=== PATIENT | male | born 1970 | race American Indian/Alaskan Native ===

== ENCOUNTER 2016-06-05 09:19 | Inpatient (IN) | payer OTHER ==
[2016-06-05 09:23] VITALS: BMI 24.4
--- NOTE | 2016-06-05 10:06 | ED PDOC ---
Arrival/HPI - General Chief Complaint: Psychiatric Evaluation Time Seen by Provider: 06/05/16 09:37 Historian: Patient - History of Present Illness Narrative History of Present Illness (Text): 06/05/16 10:06 46-year-old male with a history of schizophrenia noncompliant with his medications presents today hearing voices. Patient denies suicidal or homicidal ideation but states the voices are telling him to break Mirrors and do different things that he doesn't want to do. Patient denies chest pain or shortness of breath. No abdominal pain. No nausea or vomiting. Patient states she's been noncompliant with his medications since February 2015. Past Medical History - Provider Review Nursing Documentation Reviewed: Yes - Travel History Have you recently traveled outside [place] w/in the past 3 mons?: No - Past History Past History: Non-Contributing - Infectious Disease Hx of Infectious Diseases: None - Tetanus Immunization Tetanus Immunization: Unknown - Past Medical History Past Medical History: No Previous - Cardiac Hx Cardiac Disorders: No Hx [place]: No - Pulmonary Hx Respiratory Disorders: No Hx Chronic Obstructive Pulmonary Disease (COPD): No Hx Emphysema: No - Neurological Hx Neurological Disorder: No HX Cerebrovascular Accident: No Hx Seizures: No - HEENT Hx HEENT Disorder: No - Renal Hx Renal Disorder: No - Endocrine/Metabolic Hx Endocrine Disorders: No - Hematological/Oncological Hx Blood Disorders: No Hx Cancer: No - Integumentary Hx Dermatological Disorder: No - Musculoskeletal/Rheumatological Hx Musculoskeletal Disorders: No Hx Arthritis: No Hx Falls: No - Gastrointestinal Hx Gastrointestinal Disorders: No - Genitourinary/Gynecological Hx Genitourinary Disorders: No Hx Sexually Transmitted Diseases: No - Psychiatric Hx Psychophysiologic Disorder: No Hx Anxiety: No Hx Bipolar Disorder: No Hx Depression: No Hx Emotional Abuse: No Hx Hallucinations: No Hx Panic Disorder: No Hx Post Traumatic Stress Disorder: No Hx Psychosis: No Hx Physical Abuse: No Hx Schizophrenia: No Hx Sexual Abuse: No Hx Substance Use: No - Past Surgical History Past Surgical History: No Previous - Anesthesia Hx Anesthesia: No Hx Anesthesia Reactions: No Hx Malignant Hyperthermia: No - Suicidal Assessment Feels Threatened In Home Enviroment: No Family/Social History - Physician Review Nursing Documentation Reviewed: Yes Family/Social History: Unknown Family HX Smoking Status: Heavy Smoker > 10 Cigarettes Daily Hx Alcohol Use: No Hx Substance Use: No Hx Substance Use Treatment: Yes Allergies/Home Meds Allergies/Adverse Reactions: Allergies No Known Allergies Allergy (Verified 06/05/16 09:23) Home Medications: Home Meds Medication Instructions Recorded Confirmed No Known Home Med 06/05/16 06/05/16 Review of Systems - Review of Systems Constitutional: absent: Fatigue, Fevers Respiratory: absent: SOB, Cough Cardiovascular: absent: Chest Pain, Palpitations Gastrointestinal: absent: Abdominal Pain, Nausea, Vomiting Musculoskeletal: absent: Arthralgias Skin: absent: Rash Neurological: absent: Headache, Dizziness Psychiatric: Other (hearing voices). absent: Anxiety, Depression Physical Exam Vital Signs Reviewed: Yes Vital Signs Temp Pulse Resp BP Pulse Ox 06/05/16 09:23 98 F 71 16 150/74 100 Temperature: Afebrile Blood Pressure: Normal Pulse: Regular Respiratory Rate: Normal Appearance: Positive for: Well-Appearing, Non-Toxic, Comfortable Pain Distress: None Mental Status: Positive for: Alert and Oriented X 3 - Systems Exam Head: Present: Atraumatic Mouth: Present: Moist Mucous Membranes Neck: Present: Normal Range of Motion Respiratory/Chest: Present: Clear to Auscultation, Good Air Exchange. No: Respiratory Distress, Accessory Muscle Use Cardiovascular: Present: Regular Rate and Rhythm, Normal S1, S2. No: Murmurs Abdomen: No: Tenderness Skin: Present: Warm, Dry, Normal Color. No: Rashes Psychiatric: Present: Alert, Oriented x 3 Medical Decision Making ED Course and Treatment: 06/05/16 10:08 Patient is nontoxic well-appearing in no distress vital signs are stable. CBC WNL CMP WNL Tylenol WNL Salicylate WNL Alcohol level WNL Urine drug screen + marijuana, + cocaine UA; + blood, + small leukocytes. cxr: wnl ekg: Sinus bradycardia with sinus arrhythmia at 53 bpm normal axis normal intervals no ST elevations pt is medically cleared for PES evaluation Patient was seen and evaluated by PES screener: dru pt signed voluntarily to behavioral health floor. dr. hairston accepts. Impression; psychosis NOS Admit to behavioral health floor - Lab Interpretations Lab Results: 06/05/16 09:00 06/05/16 09:00 Lab Results 06/05/16 10:21: Urine Color Yellow, Urine Appearance Clear, Urine pH 6.0, Ur Specific [place] 1.025, Urine Protein Negative, Urine Glucose (UA) Negative, Urine Ketones Negative, Urine Blood Trace-intact H, Urine Nitrate Negative, Urine Bilirubin Negative, Urine Urobilinogen 0.2, Ur Leukocyte Esterase Small H , Urine RBC 0 - 2, Urine WBC 1 - 3, Ur Epithelial Cells 0 - 2, Urine Opiates Screen Negative, Urine Methadone Screen Negative, Ur Barbiturates Screen Negative, Ur Phencyclidine Scrn Negative, Ur Amphetamines Screen Negative, U Benzodiazepines Scrn Negative, U Oth Cocaine Metabols Positive H, U Cannabinoids Screen Positive H 06/05/16 09:00: WBC 5.5, RBC 4.39, Hgb 14.0, Hct 40.7 L, MCV 92.7, MCH 31.9, MCHC 34.4, RDW 11.3 L, Plt Count 233, MPV 9.6, Gran % 63.8, Lymph % (Auto) 24.0 , Ross % (Auto) 9.9 H, Eos % (Auto) 1.8, Baso % (Auto) 0.5, Gran # 3.53, Lymph # 1.3, Ross # 0.6, Eos # 0.1, Baso # 0.03, Sodium 137, Potassium 3.9, Chloride 100, Carbon Dioxide 29, Anion Gap 12, BUN 15, Creatinine 1.0, Est GFR ( Amer) > 60, Est GFR (Non-Af Amer) > 60, Random Glucose 96, Calcium 8.8, Total Bilirubin 0.8, AST 27, ALT 21, Alkaline Phosphatase 70, Total Protein 7.5, Albumin 4.1, Globulin 3.4, Albumin/Globulin Ratio 1.2, Salicylates < 1 L, Acetaminophen < 10.0 L, Alcohol, Quantitative < 10 - RAD Interpretation Radiology Orders: 06/05/16 09:37 CHEST PORTABLE [RAD] Stat Disposition/Present on Arrival - Present on Arrival Any Indicators Present on Arrival: No History of DVT/PE: No History of Uncontrolled Diabetes: No Urinary Catheter: No History of Decub. Ulcer: No History Surgical Site Infection Following: None - Disposition Have Diagnosis and Disposition been Completed?: Yes Diagnosis: Psychosis Disposition: HOSPITALIZED Disposition Time: 12:41 Patient Plan: Admission Condition: FAIR
[2016-06-05 10:09] LABS: ADD MANUAL DIFF? NO
[2016-06-05 10:14] LABS: BASO # 0.03 K/mm3 (0.0-2.0); BASO % 0.5 % (0.0-3.0); EOS # 0.1 (0.0-0.7); EOS % 1.8 % (1.5-5.0); GRAN # 3.53 (1.4-6.5); GRAN % 63.8 % (50.0-68.0); HEMATOCRIT 40.7 % (42.0-52.0); LYMPH # 1.3 (1.2-3.4); MEAN CELL VOLUME 92.7 fL (80.0-105.0); MEAN CORPUSCULAR HEMOGLOBIN 31.9 pg (25.0-35.0); MEAN CORPUSCULAR HGB CONC 34.4 g/dl (31.0-37.0); MEAN PLATELET VOLUME 9.6 fl (7.0-11.0); MONO # 0.6 (0.1-0.6); MONO % 9.9 % (1.0-6.0); PLATELET COUNT 233 10^3/uL (120.0-450.0); RED CELL DISTRIBUTION WIDTH 11.3 % (11.5-14.5); WHITE BLOOD COUNT 5.5 10^3/ul (4.5-11.0)
[2016-06-05 10:22] LABS: ALB/GLOB RATIO 1.2 (1.1-1.8); ALKALINE PHOSPHATASE 70 U/L (38-133); ALT/SGPT 21 U/L (7-56); AST/SGOT 27 U/L (15-59); BILIRUBIN,TOTAL 0.8 mg/dL (0.2-1.3); BLOOD UREA NITROGEN 15 mg/dL (7-21); CALCIUM 8.8 mg/dL (8.4-10.5); CARBON DIOXIDE 29 mmol/L (21-33); CHLORIDE 100 mmol/L (98-107); GFR AFRICAN-AMERICAN > 60; GLUCOSE,RANDOM 96 mg/dL (70-110); POTASSIUM 3.9 mmol/L (3.6-5.0); SODIUM 137 mmol/L (132-148); TOTAL PROTEIN 7.5 g/dL (5.8-8.3)
[2016-06-05 11:00] LABS: URINE BILIRUBIN NEGATIVE (NEGATIVE); URINE BLOOD TRACE-INTACT (NEGATIVE); URINE GLUCOSE (UA) NEGATIVE (NEGATIVE); URINE KETONE NEGATIVE (NEGATIVE); URINE LEUKOCYTE ESTERASE SMALL Leu/uL (NEGATIVE); URINE PROTEIN NEGATIVE mg/dL (<30 mg/dL); URINE UROBILINOGEN 0.2 E.U./dL (<1 E.U./dL)
[2016-06-05 11:10] LABS: URINE APPEARANCE CLEAR (CLEAR); URINE COLOR YELLOW (YELLOW)
[2016-06-05 11:13] LABS: URINE EPITHELIAL CELLS 0 - 2 /hpf (0-5); URINE RBC 0 - 2 /hpf (0-2)
--- NOTE | 2016-06-05 11:40 | RAD ---
HISTORY: pes eval COMPARISON: Comparison chest dated 04/14/2016 FINDINGS: LUNGS: No active pulmonary disease. PLEURA: No significant pleural effusion identified, no pneumothorax apparent. CARDIOVASCULAR: Normal. OSSEOUS STRUCTURES: No significant abnormalities. VISUALIZED UPPER ABDOMEN: Normal. OTHER FINDINGS: None. IMPRESSION: No active disease.
[2016-06-05 12:17] VITALS: O2SAT 99
--- NOTE | 2016-06-05 19:57 | CARD ---
APPROVED REPORT EKG Measurement Heart [id number] <Conclusion> Sinus bradycardia with sinus arrhythmia Moderate voltage criteria for LVH, may be normal variant Borderline ECG
[2016-06-06 08:52] LABS: CHOLESTEROL 153 mg/dL (130-200)
[2016-06-06 09:20] LABS: THYROID STIMULATING HORMONE 2.18 mIU/mL (0.46-4.68)
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
--- NOTE | 2016-06-06 15:06 | PCM.PSYCH ---
Initial Psychiatric Evaluation - Initial Psychiatric Evaluation Type of Admission: Voluntary Legal Status: Capacity (atient has capacity to sign consent for treatment) Chief Complaint (in patient's own words): "I was hearing voices, it is scary, I don't want to have any consequences, I do want to hurt myself, I don't want to hurt others, I'm very peaceful person" Patient's Reaction to Hospitalization: patient was admitted to the psychiatric inpatient for evaluation and stabilization of psychotic symptoms, patient was hearing voices, command type, had tendency of following on voices, patient was not able to function, lost his job, needs further evaluation and stabilization, medication titration. History of Present Illness and Precipitating Events: shortly pt is 46 years old -Martiniquais male, history of one psychiatric admission in [facility] in [address] Rose's service, self reported h/o suicidal attempt 2013, h/o cannabis and cocaine abuse, currently unemployed, homeless, brought himself to the ED looking for admission because of worsening of psychosis, command type hallucinations, telling him to brake window or hurt people, pt did not want to act on it and brought himself to the hospital. patient was seen and examined today at the morning time at treatment team room, with medical students, patient presented to have good personal hygiene,with ADLs. 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 Pt said shortly after that voices were becoming worse and from mumbling it became more formal, pt said it is only one voice and he cannot exclude that it it his own voice. Patient said she didn't look for help initially because he thought that he could block it. Patient said all of the symptoms for getting worse and worse for the past 20 years.Patient said she had one previous admission to the psychiatric inpatient unit in this hospital in 2013. Patient said that he wanted to jump off the [facility] but [place] was closed , "if it would be opened, U probably could not talk to me right now", ack then patient ex- refer him to [place] on emergency room for admission. This conventional underwriter checked previous notes from Dr. Art mendoza it is nonspecific, and no suicidal attempt described. at present moment patient reported that he was feeling depressed, hopeless, at the same time patient reported that his voices are getting worse, from being whispers right now it is, and type for example to break the window were to hurt other people. Patient said that he doesn't have intent or plan to hurt other people or himself. Patient reported to have poor appetite and sleep. Patient denied using alcohol, reported "I love marijuana, I love that I mean it ", patient denied using cocaine on daily basis, last time was last Friday.Patient reported to smoke half a pack a day refused to be on nicotine patch. Counseling provided. Smoking Cessation Counseling: The patient was counseled as to the multiple risks to his/her health from continued use of tobacco products. It was explained that continuing to smoke may lead to multiple short and arterial embalmer negative health consequences, including but not limited to mouth/esophageal /lung cancer, COPD, and heart disease. He/she states he/she understands these risks, and also understands the options and resources available to him/her to help him/her stop smoking. Nicotine replacement therapy, local hotlines, and local resources were discussed as viable options for helping him/her stop his/her tobacco use. The total time spent counseling the patient regarding tobacco cessation was 3 minutes Past psych h/o: one admission, h/o PCP, MJ use, polysubstance abuse. medical h/o: denied social h/o: homeless, pt reported to work at the [employer]. 06/05/16 09:00 06/05/16 09:00 Lab Results 06/06/16 08:00: Triglycerides 106, Cholesterol 153, LDL Cholesterol Direct 84, HDL Cholesterol 49, Free T4 1.00, TSH 3rd Generation 2.18 06/05/16 10:21: Urine Color Yellow, Urine Appearance Clear, Urine pH 6.0, Ur Specific [place] 1.025, Urine Protein Negative, Urine Glucose (UA) Negative, Urine Ketones Negative, Urine Blood Trace-intact H, Urine Nitrate Negative, Urine Bilirubin Negative, Urine Urobilinogen 0.2, Ur Leukocyte Esterase Small H , Urine RBC 0 - 2, Urine WBC 1 - 3, Ur Epithelial Cells 0 - 2, Urine Opiates Screen Negative, Urine Methadone Screen Negative, Ur Barbiturates Screen Negative, Ur Phencyclidine Scrn Negative, Ur Amphetamines Screen Negative, U Benzodiazepines Scrn Negative, U Oth Cocaine Metabols Positive H, U Cannabinoids Screen Positive H 06/05/16 09:00: WBC 5.5, RBC 4.39, Hgb 14.0, Hct 40.7 L, MCV 92.7, MCH 31.9, MCHC 34.4, RDW 11.3 L, Plt Count 233, MPV 9.6, Gran % 63.8, Lymph % (Auto) 24.0 , [place] % (Auto) 9.9 H, Eos % (Auto) 1.8, Baso % (Auto) 0.5, Gran # 3.53, Lymph # 1.3, [place] # 0.6, Eos # 0.1, Baso # 0.03, Sodium 137, Potassium 3.9, Chloride 100, Carbon Dioxide 29, Anion Gap 12, BUN 15, Creatinine 1.0, Est GFR ( Amer) > 60, Est GFR (Non-Af Amer) > 60, Random Glucose 96, Calcium 8.8, Total Bilirubin 0.8, AST 27, ALT 21, Alkaline Phosphatase 70, Total Protein 7.5, Albumin 4.1, Globulin 3.4, Albumin/Globulin Ratio 1.2, Salicylates < 1 L, Acetaminophen < 10.0 L, Alcohol, Quantitative < 10 Vital Signs Temp Pulse Resp BP Pulse Ox 06/06/16 10:16 98.5 F 49 L 20 97/54 L 06/05/16 13:50 17 06/05/16 13:28 74 18 115/67 99 06/05/16 11:19 98.6 F 74 18 148/81 99 06/05/16 09:23 98 F 71 16 150/74 100 Current Medications: Active Medications Generic Name Dose Route Start Last Admin Trade Name Freq PRN Reason Stop Dose Admin Benztropine Mesylate 0.5 mg 06/05/16 16:00 06/06/16 09:58 Cogentin PO 0.5 mg BID MONA Administration Fluoxetine HCl 20 mg 06/06/16 11:15 06/06/16 11:32 Prozac PO 20 mg DAILY MONA Administration Lorazepam 1 mg 06/05/16 14:29 Ativan IM Q6H PRN Anxiety Protocol Lorazepam 1 mg 06/05/16 14:30 Ativan PO Q6H PRN Anxiety Protocol Nicotine 1 patch 06/06/16 12:45 Nicoderm Cq TD DAILY MONA Risperidone 1 mg 06/05/16 16:00 06/06/16 09:58 Risperdal Tab PO 1 mg BID MONA Administration Protocol Trazodone HCl 50 mg 06/05/16 22:00 06/05/16 22:29 Desyrel PO 50 mg HS MONA Administration Ziprasidone 20 mg 06/05/16 14:27 Geodon Cap PO Q6H PRN Agitation Protocol Ziprasidone 20 mg 06/05/16 14:28 Geodon Inj IM Q6H PRN Agitation Protocol Past Psychiatric History - Past Psychiatric History Previous Treatment History: Inpatient Prior Professional Help: See HPI Prior Psychiatric Treatment: she HPI At [facility] hospital: see HPI Duration: see HPI Nature of Treatment: see HPI Explanation of prior treatment: see HPI History of Abuse: denied History of ETOH/Drug Use: see HPI History of Family Illness: denied Pertinent Medical Hx (Current Medical&Sleep Prob, Allergies): Allergies Allergy/AdvReac Type Severity Reaction Status Date / Time No Known Allergies Allergy Verified 06/05/16 09:23 No Known Home Med 06/05/16 Review of Systems - Review of Systems Systems not reviewed;Unavailable: Acuity of Condition - EENT Eyes: As Per HPI Ears: As Per HPI Nose/Mouth/Throat: As Per HPI - Cardiovascular Cardiovascular: As Per HPI - Respiratory Respiratory: As Per HPI - Gastrointestinal Gastrointestinal: As Per HPI - Genitourinary Genitourinary: As Per HPI - Reproductive: Male Reproductive:Male: As Per HPI - Musculoskeletal Musculoskeletal: As Par HPI - Integumentary Integumentary: As Per HPI - Neurological Neurological: As Per HPI - Psychiatric Psychiatric: As Per HPI - Endocrine Endocrine: As Per HPI - Hematologic/Lymphatic Hematologic: As Per HPI Mental Status Examination - Personal Presentation Personal Presentation: Looks stated age - Affect Affect: Other (expanded) - Motor Activity Motor Activity: Calm - Reliability in Providing Information Reliability in Providing Information: Fair - Speech Speech: Other (circumstantial) - Mood Mood: Depressed, Anxious - Formal Thought Process Formal Thought Process: Hallucinations, Delusions - Hallucinations/Delusions Hallucinations: Auditory Delusions: Persecution - Obsessions/Compulsions Obsessions: None Compulsions: None - Cognitive Functions Orientation: Person, Place, Situation, Time Sensorium: Alert Attention/Concentration: Easily distracted Estimate of Intelligence: Average Judgement: Intact, as evidence by: Insight regarding need for hospitalization - Risk Risk: Self-mutilation, Diminished functioning - Strength & Assets Inventory Strength & Assets Inventory: Cooperative, Other (good physical health) - Limitations Limitations: Other (noncompliance with meds) DSM 5 DX - DSM 5 DSM 5 Diagnosis: r/o substance induced psychosis psychosis nos r/o bipolar cocaine abuse cannabis abuse - Recommended/Plan of Treatment Treatment Recommendations and Plan of Treatment: milieu/structure/supportive therapy will resume risperdal 1mg am and hs for psychosis and mood stabilization will start prozac 20mg po daily for depressive symptoms and mood stabilization will give trazodone 50mg hs for insomnia and depression will call medical consult SW evaluation will monitor closely Projected ELOS: 7days Prognosis: fair Discharge Plan and Discharge Criteria: Pt will be not depressed or manic, will be more hopeful, will be not psychotic or anxious, will be tolerating medications well, will not have major side effects, will be able to function, will not pose threat to self or others. - Smoking Cessation Smoking Cessation Initiated: Yes
--- NOTE | 2016-06-07 16:04 | PCM.PYCHPN ---
Psychiatric Progress Note - Psychiatric Progress Note Patient seen today, length of contact: 30 MINUTES Patient Chief Complaint: "I ffeel little better" Problems Identified/Issues Discussed: Suicide/ homicide prevention, past psychiatric h/o, current psychiatric symptoms , medical problems, risk/benefits and alternatives of medications, medications compliance, coping strategies, substance abuse h/o, relapse prevention, importance of follow up with psychiatrist and therapist, discharge plan. Medical Problems: denied h/o medical issues Diagnostic Results: 06/05/16 09:00 06/05/16 09:00 Lab Results 06/06/16 08:00: Triglycerides 106, Cholesterol 153, LDL Cholesterol Direct 84, HDL Cholesterol 49, Free T4 1.00, TSH 3rd Generation 2.18, RPR Nonreactive 06/05/16 10:21: Urine Color Yellow, Urine Appearance Clear, Urine pH 6.0, Ur Specific [place] 1.025, Urine Protein Negative, Urine Glucose (UA) Negative, Urine Ketones Negative, Urine Blood Trace-intact H, Urine Nitrate Negative, Urine Bilirubin Negative, Urine Urobilinogen 0.2, Ur Leukocyte Esterase Small H , Urine RBC 0 - 2, Urine WBC 1 - 3, Ur Epithelial Cells 0 - 2, Urine Opiates Screen Negative, Urine Methadone Screen Negative, Ur Barbiturates Screen Negative, Ur Phencyclidine Scrn Negative, Ur Amphetamines Screen Negative, U Benzodiazepines Scrn Negative, U Oth Cocaine Metabols Positive H, U Cannabinoids Screen Positive H 06/05/16 09:00: WBC 5.5, RBC 4.39, Hgb 14.0, Hct 40.7 L, MCV 92.7, MCH 31.9, MCHC 34.4, RDW 11.3 L, Plt Count 233, MPV 9.6, Gran % 63.8, Lymph % (Auto) 24.0 , [place] % (Auto) 9.9 H, Eos % (Auto) 1.8, Baso % (Auto) 0.5, Gran # 3.53, Lymph # 1.3, [place] # 0.6, Eos # 0.1, Baso # 0.03, Sodium 137, Potassium 3.9, Chloride 100, Carbon Dioxide 29, Anion Gap 12, BUN 15, Creatinine 1.0, Est GFR ( Amer) > 60, Est GFR (Non-Af Amer) > 60, Random Glucose 96, Calcium 8.8, Total Bilirubin 0.8, AST 27, ALT 21, Alkaline Phosphatase 70, Total Protein 7.5, Albumin 4.1, Globulin 3.4, Albumin/Globulin Ratio 1.2, Salicylates < 1 L, Acetaminophen < 10.0 L, Alcohol, Quantitative < 10 Vital Signs Temp Pulse Resp BP Pulse Ox 06/07/16 06:00 98.0 F 57 L 22 118/60 06/06/16 15:04 47 L 99/53 L 06/06/16 10:16 98.5 F 49 L 20 97/54 L 06/05/16 13:50 17 06/05/16 13:28 74 18 115/67 99 06/05/16 11:19 98.6 F 74 18 148/81 99 06/05/16 09:23 98 F 71 16 150/74 100 DSM 5 Symptoms Update: shortly pt is 46 years old -Uz[place] male, history of one psychiatric admission in [facility] in [address] Rose's service, self reported h/o suicidal attempt 2013, h/o cannabis and cocaine abuse, currently unemployed, homeless, brought himself to the ED looking for admission because of worsening of psychosis, command type hallucinations, telling him to brake window or hurt people, pt did not want to act on it and brought himself to the hospital. patient was seen and examined today at the morning time with the treatment team , patient presented to have good personal hygiene, good ADLs. patient reported that his voices are better, patient reported that he feels less depressed, started to go to groups, his future goals are "I need to go to another hospital for longer care" patient was educated that he is in the hospital and he gets all treatment what he needed. 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 At the same time patient was not able to understand the discharge plan which was discussed with patient by child welfare social worker, patient deemed to have some cognitive impairment due to his chronic substance abuse at the same time patient denied using any drugs. Urine drug scrub screen was positive for cocaine as well as marijuana. Patient still presented to be anxious and restless. reported to have fare appetite and sleep. As per staff patient is visible in the unit, started to go to groups, socializing with others. Patient denied any side effects from the medications, aims 0 no EPS. DSM 5 Diagnosis: r/o substance induced psychosis psychosis nos r/o bipolar cocaine abuse cannabis abuse history of PCP dependence Medication Change: Yes (Risperdal increased) Medical Record Reviewed: Yes Consults ordered or reviewed: medical consult appreciated Mental Status Examination - Cognitive Function Orientation: Person, Place, Situation, Time Memory: Intact Attention: Poor Concentration: Poor Association: Loose Fund of Knowledge: Poor - Mood Mood: Depressed (last depressed), Anxious - Affect Affect: Other (expanded) - Speech Speech: Pressured (overproductive) - Formal Thought Process Formal Thought Process: Hallucinations (better), Delusions (better), Other ( thought processes disorganized) - Suicidal Ideation Suicidal Ideation: No - Homicidal Ideation Homicidal Ideation: No Goal/Treatment Plan - Goal/Treatment Plan Need for Continued Stay: Remain at risks for inpatient hospitalization, Severe depression anxiety, Discharge may exacerbated symptoms, Severe functional impairment Progress Toward Problem(s) and Goals/Treatment Plan: milieu/structure/supportive therapy will resume risperdal 1mgGAD for psychosis and mood stabilization will start prozac 20mg po daily for depressive symptoms and mood stabilization will give trazodone 50mg hs for insomnia and depression will call medical consult SW evaluation will monitor closely Estimated Date of D/C: 06/12/16 (we'll monitor closely)
--- NOTE | 2016-06-08 08:55 | PCM.PYCHPN ---
Psychiatric Progress Note - Psychiatric Progress Note Patient seen today, length of contact: 25 MINUTES Patient Chief Complaint: depressed Problems Identified/Issues Discussed: I reviewed assessment a recent notes. Patient was interviewed in his room. Patient is calm and superficially cooperative with my visit. He is oriented x3. Indicates that he is feeling okay and "slept okay". Depression persists however hallucinations have remitted. Patient appears anxious but in fair control. He denies having any suicidal thoughts or thoughts of harm others. Currently denies any new discomfort or pain and has been tolerating his medications Staff notes indicate that patient has tendency to isolate. There were no behavioral issues overnight Diagnostic Results: r/o substance induced psychosis psychosis nos r/o bipolar cocaine abuse cannabis abuse history of PCP dependence Medication Change: No ( ) Medical Record Reviewed: Yes (notes, reports, labs, vitals) Mental Status Examination - Cognitive Function Orientation: Person, Place, Situation, Time Memory: Intact Attention: WNL Concentration: Poor Association: Loose Fund of Knowledge: Poor - Mood Mood: Depressed (last depressed), Anxious - Affect Affect: Other (expanded) - Speech Speech: Pressured (overproductive) - Formal Thought Process Formal Thought Process: Hallucinations (denies currently), Delusions (none elicited today), Other (thought processes disorganized) - Suicidal Ideation Suicidal Ideation: No - Homicidal Ideation Homicidal Ideation: No Goal/Treatment Plan - Goal/Treatment Plan Need for Continued Stay: Remain at risks for inpatient hospitalization, Severe depression anxiety, Discharge may exacerbated symptoms, Severe functional impairment Progress Toward Problem(s) and Goals/Treatment Plan: * c/w current tx and plan * No new weekend labs * Vitals reviewed and noted below: Selected Entries 06/08/16 08:50 Temperature 98.1 F Pulse Rate 67 Respiratory 17 Rate Blood Pressure 103/73 Estimated Date of D/C: 06/12/16 (we'll monitor closely)
[2016-06-09 07:34] VITALS: RESP 20
--- NOTE | 2016-06-09 08:48 | PCM.PYCHPN ---
Psychiatric Progress Note - Psychiatric Progress Note Patient seen today, length of contact: 25 MINUTES Patient Chief Complaint: depressed and hopeless Problems Identified/Issues Discussed: I reviewed recent notes and met with patient at bedside. Patient is calm and cooperative with my visit. He is oriented x3. Indicates that he is feeling " very depressed and hopeless". Reports recurrent nightmares with a theme of helplessness. Depression persists and staff notes indicate that patient complained of hallucinations yesterday. Patient indicates that hallucinations are less intense and distressful.. He reports hearing people mumble "random things". Patient appears a little anxious but in fair control. He denies having any suicidal thoughts or thoughts of harm others. Currently denies any new discomfort or pain and has been tolerating his medications Staff notes indicate that patient can be anxious but generally in control and cooperative. There were no behavioral issues over the weekend. Diagnostic Results: r/o substance induced psychosis psychosis nos r/o bipolar cocaine abuse cannabis abuse history of PCP dependence Medication Change: No ( ) Medical Record Reviewed: Yes (notes, reports, labs, vitals) Mental Status Examination - Cognitive Function Orientation: Person, Place, Situation, Time Memory: Intact Attention: WNL Concentration: Poor Association: Loose Fund of Knowledge: Poor - Mood Mood: Depressed (last depressed), Anxious - Affect Affect: Constricted - Speech Speech: Appropriate - Formal Thought Process Formal Thought Process: Hallucinations ( He reports hearing people mumble "random things"), Delusions (none elicited this weekend), Other (thought processes disorganized) - Suicidal Ideation Suicidal Ideation: No - Homicidal Ideation Homicidal Ideation: No Goal/Treatment Plan - Goal/Treatment Plan Need for Continued Stay: Remain at risks for inpatient hospitalization, Severe depression anxiety, Discharge may exacerbated symptoms, Severe functional impairment Progress Toward Problem(s) and Goals/Treatment Plan: * c/w current tx and plan * No new weekend labs * Vitals reviewed and noted below: Selected Entries 06/09/16 07:33 Temperature 97.6 F Pulse Rate 55 L Respiratory 20 Rate Blood Pressure 113/67 Estimated Date of D/C: 06/12/16 (we'll monitor closely)
--- NOTE | 2016-06-10 14:15 | PCM.PYCHPN ---
Psychiatric Progress Note - Psychiatric Progress Note Patient seen today, length of contact: 30 minutes Patient Chief Complaint: "I had nightmares last night, voices are little better, but still it is bothering me" Problems Identified/Issues Discussed: Suicide/ homicide prevention, past psychiatric h/o, current psychiatric symptoms , medical problems, risk/benefits and alternatives of medications, medications compliance, coping strategies, substance abuse h/o, relapse prevention, importance of follow up with psychiatrist and therapist, discharge plan. Medical Problems: denied h/o medical issues Diagnostic Results: 06/05/16 09:00 06/05/16 09:00 Lab Results 06/06/16 08:00: Triglycerides 106, Cholesterol 153, LDL Cholesterol Direct 84, HDL Cholesterol 49, Free T4 1.00, TSH 3rd Generation 2.18, RPR Nonreactive 06/05/16 10:21: Urine Color Yellow, Urine Appearance Clear, Urine pH 6.0, Ur Specific [place] 1.025, Urine Protein Negative, Urine Glucose (UA) Negative, Urine Ketones Negative, Urine Blood Trace-intact H, Urine Nitrate Negative, Urine Bilirubin Negative, Urine Urobilinogen 0.2, Ur Leukocyte Esterase Small H , Urine RBC 0 - 2, Urine WBC 1 - 3, Ur Epithelial Cells 0 - 2, Urine Opiates Screen Negative, Urine Methadone Screen Negative, Ur Barbiturates Screen Negative, Ur Phencyclidine Scrn Negative, Ur Amphetamines Screen Negative, U Benzodiazepines Scrn Negative, U Oth Cocaine Metabols Positive H, U Cannabinoids Screen Positive H 06/05/16 09:00: WBC 5.5, RBC 4.39, Hgb 14.0, Hct 40.7 L, MCV 92.7, MCH 31.9, MCHC 34.4, RDW 11.3 L, Plt Count 233, MPV 9.6, Gran % 63.8, Lymph % (Auto) 24.0 , [place] % (Auto) 9.9 H, Eos % (Auto) 1.8, Baso % (Auto) 0.5, Gran # 3.53, Lymph # 1.3, [place] # 0.6, Eos # 0.1, Baso # 0.03, Sodium 137, Potassium 3.9, Chloride 100, Carbon Dioxide 29, Anion Gap 12, BUN 15, Creatinine 1.0, Est GFR ( Amer) > 60, Est GFR (Non-Af Amer) > 60, Random Glucose 96, Calcium 8.8, Total Bilirubin 0.8, AST 27, ALT 21, Alkaline Phosphatase 70, Total Protein 7.5, Albumin 4.1, Globulin 3.4, Albumin/Globulin Ratio 1.2, Salicylates < 1 L, Acetaminophen < 10.0 L, Alcohol, Quantitative < 10 Vital Signs Temp Pulse Resp BP Pulse Ox 06/07/16 06:00 98.0 F 57 L 22 118/60 06/06/16 15:04 47 L 99/53 L 06/06/16 10:16 98.5 F 49 L 20 97/54 L 06/05/16 13:50 17 06/05/16 13:28 74 18 115/67 99 06/05/16 11:19 98.6 F 74 18 148/81 99 06/05/16 09:23 98 F 71 16 150/74 100 Temp Pulse Resp BP Pulse Ox 98.1 F 55 L 20 98/62 L 99 06/10/16 07:42 06/10/16 07:42 06/10/16 07:42 06/10/16 07:42 06/05/16 13:28 DSM 5 Symptoms Update: shortly pt is 46 years old -[place] male, history of one psychiatric admission in [facility] in [address] Rose's service, self reported h/o suicidal attempt 2013, h/o cannabis and cocaine abuse, currently unemployed, homeless, brought himself to the ED looking for admission because of worsening of psychosis, command type hallucinations, telling him to brake window or hurt people, pt did not want to act on it and brought himself to the hospital. patient was seen and examined today at the morning time at the treatment team room, patient presented to have good personal hygiene, good ADLs. patient reported that his voices are better, but still this voice is "bothering me", pt said that he had nightmares last night, pt asked meds to be adjusted. pt is negative at groups, irritable, angry, disruptive, labile, concentrate only on his own symptoms reported to have fare appetite and sleep. As per staff patient is visible in the unit, started to go to groups, socializing with others. Patient denied any side effects from the medications, aims 0 no EPS. DSM 5 Diagnosis: r/o substance induced psychosis psychosis nos r/o bipolar cocaine abuse cannabis abuse history of PCP dependence Medication Change: Yes (risperdal, cogenting, prozac increased) Medical Record Reviewed: Yes (notes, reports, labs, vitals) Consults ordered or reviewed: medical consult appreciated Mental Status Examination - Cognitive Function Orientation: Person, Place, Situation, Time Memory: Intact Attention: WNL Concentration: Poor (some improvement) Association: Loose (some improvement) Fund of Knowledge: Poor - Mood Mood: Depressed (irritable), Anxious - Affect Affect: Constricted - Speech Speech: Appropriate - Formal Thought Process Formal Thought Process: Hallucinations ( He reports hearing people mumble "random things"), Other (thought processes disorganized) - Suicidal Ideation Suicidal Ideation: No - Homicidal Ideation Homicidal Ideation: No Goal/Treatment Plan - Goal/Treatment Plan Need for Continued Stay: Remain at risks for inpatient hospitalization, Severe depression anxiety, Discharge may exacerbated symptoms, Severe functional impairment Progress Toward Problem(s) and Goals/Treatment Plan: milieu/structure/supportive therapy risperdal 2 mg twice a day for psychosis and mood stabilization we'll increase Cogentin to 1 mg twice a day for possible EPS symptoms we'll increase prozac 40mg po daily for depressive symptoms and mood stabilization will give trazodone 50mg hs for insomnia and depression will call medical consult SW evaluation will monitor closely Estimated Date of D/C: 06/12/16 (we'll monitor closely)
--- NOTE | 2016-06-11 14:49 | PCM.PYCHPN ---
Psychiatric Progress Note - Psychiatric Progress Note Patient seen today, length of contact: 30 minutes Patient Chief Complaint: "I feel little better" Problems Identified/Issues Discussed: Suicide/ homicide prevention, past psychiatric h/o, current psychiatric symptoms , medical problems, risk/benefits and alternatives of medications, medications compliance, coping strategies, substance abuse h/o, relapse prevention, importance of follow up with psychiatrist and therapist, discharge plan. Medical Problems: denied h/o medical issues Diagnostic Results: 06/05/16 09:00 06/05/16 09:00 Lab Results 06/06/16 08:00: Triglycerides 106, Cholesterol 153, LDL Cholesterol Direct 84, HDL Cholesterol 49, Free T4 1.00, TSH 3rd Generation 2.18, RPR Nonreactive 06/05/16 10:21: Urine Color Yellow, Urine Appearance Clear, Urine pH 6.0, Ur Specific [place] 1.025, Urine Protein Negative, Urine Glucose (UA) Negative, Urine Ketones Negative, Urine Blood Trace-intact H, Urine Nitrate Negative, Urine Bilirubin Negative, Urine Urobilinogen 0.2, Ur Leukocyte Esterase Small H , Urine RBC 0 - 2, Urine WBC 1 - 3, Ur Epithelial Cells 0 - 2, Urine Opiates Screen Negative, Urine Methadone Screen Negative, Ur Barbiturates Screen Negative, Ur Phencyclidine Scrn Negative, Ur Amphetamines Screen Negative, U Benzodiazepines Scrn Negative, U Oth Cocaine Metabols Positive H, U Cannabinoids Screen Positive H 06/05/16 09:00: WBC 5.5, RBC 4.39, Hgb 14.0, Hct 40.7 L, MCV 92.7, MCH 31.9, MCHC 34.4, RDW 11.3 L, Plt Count 233, MPV 9.6, Gran % 63.8, Lymph % (Auto) 24.0 , [place] % (Auto) 9.9 H, Eos % (Auto) 1.8, Baso % (Auto) 0.5, Gran # 3.53, Lymph # 1.3, [place] # 0.6, Eos # 0.1, Baso # 0.03, Sodium 137, Potassium 3.9, Chloride 100, Carbon Dioxide 29, Anion Gap 12, BUN 15, Creatinine 1.0, Est GFR ( Amer) > 60, Est GFR (Non-Af Amer) > 60, Random Glucose 96, Calcium 8.8, Total Bilirubin 0.8, AST 27, ALT 21, Alkaline Phosphatase 70, Total Protein 7.5, Albumin 4.1, Globulin 3.4, Albumin/Globulin Ratio 1.2, Salicylates < 1 L, Acetaminophen < 10.0 L, Alcohol, Quantitative < 10 Vital Signs Temp Pulse Resp BP Pulse Ox 06/07/16 06:00 98.0 F 57 L 22 118/60 06/06/16 15:04 47 L 99/53 L 06/06/16 10:16 98.5 F 49 L 20 97/54 L 06/05/16 13:50 17 06/05/16 13:28 74 18 115/67 99 06/05/16 11:19 98.6 F 74 18 148/81 99 06/05/16 09:23 98 F 71 16 150/74 100 Temp Pulse Resp BP Pulse Ox 98.1 F 55 L 20 98/62 L 99 06/10/16 07:42 06/10/16 07:42 06/10/16 07:42 06/10/16 07:42 06/05/16 13:28 Temp Pulse Resp BP Pulse Ox 97.5 F L 56 L 20 101/62 99 06/11/16 06:59 06/11/16 06:59 06/11/16 06:59 06/11/16 06:59 06/05/16 13:28 DSM 5 Symptoms Update: shortly pt is 46 years old -[place] male, history of one psychiatric admission in [facility] in [address] Rose's service, self reported h/o suicidal attempt 2013, h/o cannabis and cocaine abuse, currently unemployed, homeless, brought himself to the ED looking for admission because of worsening of psychosis, command type hallucinations, telling him to brake window or hurt people, pt did not want to act on it and brought himself to the hospital. patient was seen and examined today at the morning time at the treatment team room, patient presented to have good personal hygiene, good ADLs. patient reported that his voices are better, "I learned that I need to be on medications". pt is more pleasant. reported to have fare appetite and sleep. As per staff patient is visible in the unit, started to go to groups, socializing with others. Patient denied any side effects from the medications, aims 0 no EPS. DSM 5 Diagnosis: r/o substance induced psychosis psychosis nos r/o bipolar cocaine abuse cannabis abuse history of PCP dependence Medication Change: No ( adjusted yesterday) Medical Record Reviewed: Yes (notes, reports, labs, vitals) Consults ordered or reviewed: medical consult appreciated Mental Status Examination - Cognitive Function Orientation: Person, Place, Situation, Time Memory: Intact Attention: WNL Concentration: Poor (some improvement) Association: Loose (some improvement) Fund of Knowledge: Poor - Mood Mood: Depressed (irritable), Anxious - Affect Affect: Constricted (But more reactive) - Speech Speech: Appropriate - Formal Thought Process Formal Thought Process: Hallucinations ( He reports hearing people mumble "random things"), Other (thought processes disorganized) - Suicidal Ideation Suicidal Ideation: No - Homicidal Ideation Homicidal Ideation: No Goal/Treatment Plan - Goal/Treatment Plan Need for Continued Stay: Remain at risks for inpatient hospitalization, Severe depression anxiety, Discharge may exacerbated symptoms, Severe functional impairment Progress Toward Problem(s) and Goals/Treatment Plan: milieu/structure/supportive therapy risperdal 2 mg twice a day for psychosis and mood stabilization we'll increase Cogentin to 1 mg twice a day for possible EPS symptoms we'll increase prozac 40mg po daily for depressive symptoms and mood stabilization will give trazodone 50mg hs for insomnia and depression will call medical consult SW evaluation will monitor closely Estimated Date of D/C: 06/12/16 (we'll monitor closely)
--- NOTE | 2016-06-12 15:18 | PCM.PYCHPN ---
Psychiatric Progress Note - Psychiatric Progress Note Patient seen today, length of contact: 30 minutes Patient Chief Complaint: "I feel better, I need to continue on medications" Problems Identified/Issues Discussed: Suicide/ homicide prevention, past psychiatric h/o, current psychiatric symptoms , medical problems, risk/benefits and alternatives of medications, medications compliance, coping strategies, substance abuse h/o, relapse prevention, importance of follow up with psychiatrist and therapist, discharge plan. Medical Problems: denied h/o medical issues Diagnostic Results: 06/05/16 09:00 06/05/16 09:00 Lab Results 06/06/16 08:00: Triglycerides 106, Cholesterol 153, LDL Cholesterol Direct 84, HDL Cholesterol 49, Free T4 1.00, TSH 3rd Generation 2.18, RPR Nonreactive 06/05/16 10:21: Urine Color Yellow, Urine Appearance Clear, Urine pH 6.0, Ur Specific [place] 1.025, Urine Protein Negative, Urine Glucose (UA) Negative, Urine Ketones Negative, Urine Blood Trace-intact H, Urine Nitrate Negative, Urine Bilirubin Negative, Urine Urobilinogen 0.2, Ur Leukocyte Esterase Small H , Urine RBC 0 - 2, Urine WBC 1 - 3, Ur Epithelial Cells 0 - 2, Urine Opiates Screen Negative, Urine Methadone Screen Negative, Ur Barbiturates Screen Negative, Ur Phencyclidine Scrn Negative, Ur Amphetamines Screen Negative, U Benzodiazepines Scrn Negative, U Oth Cocaine Metabols Positive H, U Cannabinoids Screen Positive H 06/05/16 09:00: WBC 5.5, RBC 4.39, Hgb 14.0, Hct 40.7 L, MCV 92.7, MCH 31.9, MCHC 34.4, RDW 11.3 L, Plt Count 233, MPV 9.6, Gran % 63.8, Lymph % (Auto) 24.0 , [place] % (Auto) 9.9 H, Eos % (Auto) 1.8, Baso % (Auto) 0.5, Gran # 3.53, Lymph # 1.3, [place] # 0.6, Eos # 0.1, Baso # 0.03, Sodium 137, Potassium 3.9, Chloride 100, Carbon Dioxide 29, Anion Gap 12, BUN 15, Creatinine 1.0, Est GFR ( Amer) > 60, Est GFR (Non-Af Amer) > 60, Random Glucose 96, Calcium 8.8, Total Bilirubin 0.8, AST 27, ALT 21, Alkaline Phosphatase 70, Total Protein 7.5, Albumin 4.1, Globulin 3.4, Albumin/Globulin Ratio 1.2, Salicylates < 1 L, Acetaminophen < 10.0 L, Alcohol, Quantitative < 10 Vital Signs Temp Pulse Resp BP Pulse Ox 06/07/16 06:00 98.0 F 57 L 22 118/60 06/06/16 15:04 47 L 99/53 L 06/06/16 10:16 98.5 F 49 L 20 97/54 L 06/05/16 13:50 17 06/05/16 13:28 74 18 115/67 99 06/05/16 11:19 98.6 F 74 18 148/81 99 06/05/16 09:23 98 F 71 16 150/74 100 Temp Pulse Resp BP Pulse Ox 98.1 F 55 L 20 98/62 L 99 06/10/16 07:42 06/10/16 07:42 06/10/16 07:42 06/10/16 07:42 06/05/16 13:28 Temp Pulse Resp BP Pulse Ox 97.5 F L 56 L 20 101/62 99 06/11/16 06:59 06/11/16 06:59 06/11/16 06:59 06/11/16 06:59 06/05/16 13:28 Temp Pulse Resp BP Pulse Ox 97.6 F 55 L 20 94/58 L 99 06/12/16 07:24 06/12/16 07:24 06/12/16 07:24 06/12/16 07:24 06/05/16 13:28 DSM 5 Symptoms Update: shortly pt is 46 years old -[place]el[place] male, history of one psychiatric admission in [facility] in [address] Rose's service, self reported h/o suicidal attempt 2013, h/o cannabis and cocaine abuse, currently unemployed, homeless, brought himself to the ED looking for admission because of worsening of psychosis, command type hallucinations, telling him to brake window or hurt people, pt did not want to act on it and brought himself to the hospital. patient was seen and examined today at the morning time at the treatment team room, patient presented to have good personal hygiene, good ADLs. patient reported that his voices are better,patient denied any paranoid ideations, patient said that from now on she will be compliant with the medications, patient expressed his interest to be followed up with outpatient psychiatrist and therapist, patient is looking forward to be discharged tomorrow , pt is more pleasant. reported to have fare appetite and sleep. As per staff patient is visible in the unit, started to go to groups, socializing with others. Patient denied any side effects from the medications, aims 0 no EPS. DSM 5 Diagnosis: r/o substance induced psychosis psychosis nos r/o bipolar cocaine abuse cannabis abuse history of PCP dependence Medication Change: No ( adjusted yesterday) Medical Record Reviewed: Yes (notes, reports, labs, vitals) Consults ordered or reviewed: medical consult appreciated Mental Status Examination - Cognitive Function Orientation: Person, Place, Situation, Time Memory: Intact Attention: WNL Concentration: WNL Association: WNL Fund of Knowledge: WN - Mood Mood: Depressed ("I feel better") - Affect Affect: Constricted (but reactive, mood congruent) - Speech Speech: Appropriate - Formal Thought Process Formal Thought Process: No Impairment, Other (thought processes disorganized) - Suicidal Ideation Suicidal Ideation: No - Homicidal Ideation Homicidal Ideation: No Goal/Treatment Plan - Goal/Treatment Plan Need for Continued Stay: Remain at risks for inpatient hospitalization, Severe depression anxiety, Discharge may exacerbated symptoms, Severe functional impairment Progress Toward Problem(s) and Goals/Treatment Plan: milieu/structure/supportive therapy risperdal 2 mg twice a day for psychosis and mood stabilization cogentin to 1 mg twice a day for possible EPS symptoms prozac 40mg po daily for depressive symptoms and mood stabilization Trazodone 50mg hs for insomnia and depression will call medical consult SW evaluation will monitor closely Estimated Date of D/C: 06/13/16 (we'll monitor closely)
[2016-06-13 06:59] VITALS: BP 88/58; PULSE 56; TEMP 97.5
--- NOTE | 2016-06-14 16:38 | PCM.PYCHDC ---
Mental Status Examination - Mental Status Examination Orientation: Person, Place, Situation, Time Memory: Intact Mood: Neutral Affect: Broad Attention: WNL Concentration: WNL Association: WNL Fund of Knowledge: WNL Formal Thought Process: No Impairment Description of patient's judgement and insight: Pt has improved insight into mental and medical illness, pt was compliant with medications and unit rules and regulations, pt was going to groups, was calm, cooperative, socially appropriate, no behavioral incidents, no agitation, no aggression. Psychotic Thoughts and Behaviors: Pt denied v/a/t hallucinations, denied paranoid ideations, pt does not appear to be psychotic, and thought process is goal directed. Suicidal Ideation: No Current Homicidal Ideation?: No Plan: pt adamantly denied thoughts of harming self or others denied intent or plan. Discharge Summary - Discharge Note Reason for Hospitalization: patient was admitted to the psychiatric inpatient for evaluation and stabilization of psychotic symptoms, patient was hearing voices, command type, had tendency of following on voices, patient was not able to function, lost his job, needs further evaluation and stabilization, medication titration. Psychiatric History (includes Medical, Family, Personal Hx): see HPI Laboratory Data: 06/05/16 09:00 06/05/16 09:00 Lab Results 06/06/16 08:00: Triglycerides 106, Cholesterol 153, LDL Cholesterol Direct 84, HDL Cholesterol 49, Free T4 1.00, TSH 3rd Generation 2.18, RPR Nonreactive 06/05/16 10:21: Urine Color Yellow, Urine Appearance Clear, Urine pH 6.0, Ur Specific [place] 1.025, Urine Protein Negative, Urine Glucose (UA) Negative, Urine Ketones Negative, Urine Blood Trace-intact H, Urine Nitrate Negative, Urine Bilirubin Negative, Urine Urobilinogen 0.2, Ur Leukocyte Esterase Small H , Urine RBC 0 - 2, Urine WBC 1 - 3, Ur Epithelial Cells 0 - 2, Urine Opiates Screen Negative, Urine Methadone Screen Negative, Ur Barbiturates Screen Negative, Ur Phencyclidine Scrn Negative, Ur Amphetamines Screen Negative, U Benzodiazepines Scrn Negative, U Oth Cocaine Metabols Positive H, U Cannabinoids Screen Positive H 06/05/16 09:00: WBC 5.5, RBC 4.39, Hgb 14.0, Hct 40.7 L, MCV 92.7, MCH 31.9, MCHC 34.4, RDW 11.3 L, Plt Count 233, MPV 9.6, Gran % 63.8, Lymph % (Auto) 24.0 , [place] % (Auto) 9.9 H, Eos % (Auto) 1.8, Baso % (Auto) 0.5, Gran # 3.53, Lymph # 1.3, [place] # 0.6, Eos # 0.1, Baso # 0.03, Sodium 137, Potassium 3.9, Chloride 100, Carbon Dioxide 29, Anion Gap 12, BUN 15, Creatinine 1.0, Est GFR ( Amer) > 60, Est GFR (Non-Af Amer) > 60, Random Glucose 96, Calcium 8.8, Total Bilirubin 0.8, AST 27, ALT 21, Alkaline Phosphatase 70, Total Protein 7.5, Albumin 4.1, Globulin 3.4, Albumin/Globulin Ratio 1.2, Salicylates < 1 L, Acetaminophen < 10.0 L, Alcohol, Quantitative < 10 Vital Signs Temp Pulse Resp BP Pulse Ox 06/13/16 06:58 97.5 F L 56 L 20 88/58 L 06/12/16 16:36 81 126/62 06/12/16 07:24 97.6 F 55 L 20 94/58 L 06/11/16 16:00 67 121/76 06/11/16 06:59 97.5 F L 56 L 20 101/62 06/10/16 16:00 75 119/73 06/10/16 07:42 98.1 F 55 L 20 98/62 L 06/09/16 18:29 56 L 118/76 06/09/16 07:33 97.6 F 55 L 20 113/67 06/09/16 02:51 82 119/63 06/08/16 16:28 82 119/63 06/08/16 08:50 98.1 F 67 17 103/73 06/08/16 03:26 91 H 06/07/16 16:32 91 H 104/49 L 06/07/16 06:00 98.0 F 57 L 22 118/60 06/06/16 15:04 47 L 99/53 L 06/06/16 10:16 98.5 F 49 L 20 97/54 L 06/05/16 13:50 17 06/05/16 13:28 74 18 115/67 99 06/05/16 11:19 98.6 F 74 18 148/81 99 06/05/16 09:23 98 F 71 16 150/74 100 Consultations:: List each consultation separately and include: 1. Reason for request. 2. Findings. 3. Follow-up Consultations: medical consult appreciated see notes for more detailed information Summary of Hospital Course include:: 1. Description of specific treatment plan utilized for patients during their course of treatmen. 2. Summarize the time- course for resolution of acute symptoms and/or regressed behaviors. 3. Describe issues identified and worked on during hospitalization. 4. Describe medication utilized. 5. Describe medical problems identified and treated. 6. Reassessment of suicide risk Summary of Hospital Course: shortly pt is 46 years old -[place] male, history of one psychiatric admission in [facility] in [address] Rose's service, self reported h/o suicidal attempt 2013, h/o cannabis and cocaine abuse, currently unemployed, homeless, brought himself to the ED looking for admission because of worsening of psychosis, command type hallucinations, telling him to brake window or hurt people, pt did not want to act on it and brought himself to the hospital. at the time of admission pt presented to have good personal hygiene,with ADLs. 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 Pt said shortly after that voices were becoming worse and from mumbling it became more formal, pt said it is only one voice and he cannot exclude that it it his own voice. Patient said she didn't look for help initially because he thought that he could block it. Patient said all of the symptoms for getting worse and worse for the past 20 years.Patient said she had one previous admission to the psychiatric inpatient unit in this hospital in 2013. Patient said that he wanted to jump off the [facility] but [place] was closed , "if it would be opened, U probably could not talk to me right now", ack then patient ex- refer him to [facility] on emergency room for admission. This headline writer checked previous notes from Dr. Art mendoza it is nonspecific, and no suicidal attempt described. at present moment patient reported that he was feeling depressed, hopeless, at the same time patient reported that his voices are getting worse, from being whispers right now it is, and type for example to break the window were to hurt other people. Patient said that he doesn't have intent or plan to hurt other people or himself. Patient reported to have poor appetite and sleep. Patient denied using alcohol, reported "I love marijuana, I love that I mean it ", patient denied using cocaine on daily basis, last time was last Friday.Patient reported to smoke half a pack a day refused to be on nicotine patch. Counseling provided. Smoking Cessation Counseling: The patient was counseled as to the multiple risks to his/her health from continued use of tobacco products. It was explained that continuing to smoke may lead to multiple short and lobsterman negative health consequences, including but not limited to mouth/esophageal /lung cancer, COPD, and heart disease. He/she states he/she understands these risks, and also understands the options and resources available to him/her to help him/her stop smoking. Nicotine replacement therapy, local hotlines, and local resources were discussed as viable options for helping him/her stop his/her tobacco use. The total time spent counseling the patient regarding tobacco cessation was 3 minutes Past psych h/o: one admission, h/o PCP, MJ use, polysubstance abuse. medical h/o: denied social h/o: homeless, pt reported to work at the [employer]. 06/05/16 09:00 06/05/16 09:00 Lab Results 06/06/16 08:00: Triglycerides 106, Cholesterol 153, LDL Cholesterol Direct 84, HDL Cholesterol 49, Free T4 1.00, TSH 3rd Generation 2.18 06/05/16 10:21: Urine Color Yellow, Urine Appearance Clear, Urine pH 6.0, Ur Specific [place] 1.025, Urine Protein Negative, Urine Glucose (UA) Negative, Urine Ketones Negative, Urine Blood Trace-intact H, Urine Nitrate Negative, Urine Bilirubin Negative, Urine Urobilinogen 0.2, Ur Leukocyte Esterase Small H , Urine RBC 0 - 2, Urine WBC 1 - 3, Ur Epithelial Cells 0 - 2, Urine Opiates Screen Negative, Urine Methadone Screen Negative, Ur Barbiturates Screen Negative, Ur Phencyclidine Scrn Negative, Ur Amphetamines Screen Negative, U Benzodiazepines Scrn Negative, U Oth Cocaine Metabols Positive H, U Cannabinoids Screen Positive H 06/05/16 09:00: WBC 5.5, RBC 4.39, Hgb 14.0, Hct 40.7 L, MCV 92.7, MCH 31.9, MCHC 34.4, RDW 11.3 L, Plt Count 233, MPV 9.6, Gran % 63.8, Lymph % (Auto) 24.0 , [place] % (Auto) 9.9 H, Eos % (Auto) 1.8, Baso % (Auto) 0.5, Gran # 3.53, Lymph # 1.3, [place] # 0.6, Eos # 0.1, Baso # 0.03, Sodium 137, Potassium 3.9, Chloride 100, Carbon Dioxide 29, Anion Gap 12, BUN 15, Creatinine 1.0, Est GFR ( Amer) > 60, Est GFR (Non-Af Amer) > 60, Random Glucose 96, Calcium 8.8, Total Bilirubin 0.8, AST 27, ALT 21, Alkaline Phosphatase 70, Total Protein 7.5, Albumin 4.1, Globulin 3.4, Albumin/Globulin Ratio 1.2, Salicylates < 1 L, Acetaminophen < 10.0 L, Alcohol, Quantitative < 10 Vital Signs Temp Pulse Resp BP Pulse Ox 06/06/16 10:16 98.5 F 49 L 20 97/54 L 06/05/16 13:50 17 06/05/16 13:28 74 18 115/67 99 06/05/16 11:19 98.6 F 74 18 148/81 99 06/05/16 09:23 98 F 71 16 150/74 100 over the course of this hospitalization pt was stabilized on the following medications: risperdal 2 mg twice a day for psychosis and mood stabilization cogentin to 1 mg twice a day for possible EPS symptoms prozac 40mg po daily for depressive symptoms and mood stabilization Trazodone 50mg hs for insomnia and depression pt tolerated medications well, no side effects observed or reported AIMS 0, no EPS. Over the course of this hospitalization pt was attending groups, pt also had medication management, had therapeutic milieu. Overall pt improved significantly, pt's affect became brighter, pt was less depressed, has realistic future oriented plans, pt also does not appear to be psychotic, or anxious, pt was socially appropriate, no behavioral issues, pts insight improved as well and soon pt deemed to be ready for discharge. At the time of the discharge pt denied been depressed, denied thoughts of harming self or others, denied psychotic symptoms, and pt does not appeared to be psychotic, denied been anxious, was considered to pose no threat to self or others, will be following up at [facility], information about follow up appointment, time and address provided to the pt, it is patient responsibility to follow up with outpatient clinic, PMD as well as specialists (see SW note for more detailed information). In case pt will need to obtain results of studies pending at discharge pt was provided with contact information of Psychiatric Inpatient unit [phone] as well as Medical Record Department [phone]. Nicotine patch was offered Counseling about smoking and alcohol cessation provided AA meetings as well as [facility] smoking cessation treatment program information was provided by the prescriptions for two weeks and one refill provided (please see medication reconciliation form) Pt was educated about safety plan in case of worsening of symptoms or in case of suicidal or homicidal ideation call 911 or go to the nearest ER, also was educated to take meds as prescribed and stay away from drugs, pt verbalized understanding. - Diagnosis (1) Substance-induced psychotic disorder with delusions Status: Acute (2) Substance-induced psychotic disorder with hallucinations Status: Acute - Final Diagnosis (DSM 5) Condition upon Discharge: GOOD Disposition: HOME/ ROUTINE Follow-up Treatment Plan: milieu/structure/supportive therapy risperdal 2 mg twice a day for psychosis and mood stabilization cogentin to 1 mg twice a day for possible EPS symptoms prozac 40mg po daily for depressive symptoms and mood stabilization Trazodone 50mg hs for insomnia and depression will call medical consult SW evaluation will monitor closely Prescriptions/Medication Reconciliation: Benztropine [Cogentin] 1 mg PO AMHS #30 tab traZODone [Desyrel] 50 mg PO HS #14 tab Nicotine 7 mg/24 hr [Nicoderm CQ] 1 patch TD DAILY #14 patch Fluoxetine HCl [Prozac] 40 mg PO DAILY #14 cap risperiDONE [RisperDAL Tab] 2 mg PO AMHS #30 tab - Smoking Cessation Smoking Cessation Medication prescribed: Yes - Antipsychotic Medications Pt discharged on 2 or more routine antipsychotic medications: No
== END 2016-06-13 15:13 | disposition home or self-care (01) ==
LOC: ED 09:19 → ERH 12:42 → PSYC 13:53
PROVIDERS: ADMIT Psychiatry & Neurology Psychiatry; ATTEND Psychiatry & Neurology Psychiatry
DX: F29 Unspecified psychosis not due to a substance or known physiological condition (principal); F14.10 Cocaine abuse, uncomplicated; F12.10 Cannabis abuse, uncomplicated; F15.21 Other stimulant dependence, in remission

== ENCOUNTER 2017-09-07 15:10 | Inpatient (IN) | payer MEDICAID, OTHER ==
[2017-09-07] MEDS ORDERED: TDAP Vaccine 0.5 mL Syr IM ONE (15:20)
[2017-09-07] MEDS ORDERED: Sodium Chloride 0.9% 1,000 ML IV STA (15:23)
[2017-09-07] MEDS ORDERED: ceFAZolin 2 GM in Sodium Chloride 0.9% 100 ML IVPB STA (15:24)
[2017-09-07 15:34] LABS: BASO # 0.04 K/mm3 (0.0-2.0); BASO % 0.4 % (0.0-3.0); EOS % 0.1 % (1.5-5.0); GRAN # 8.21 (1.4-6.5); GRAN % 82.1 % (50.0-68.0); HEMOGLOBIN 13.1 g/dL (14.0-18.0); LYMPH # 1.3 (1.2-3.4); LYMPH % 12.8 % (22.0-35.0); MEAN CELL VOLUME 92.4 fl (80.0-105.0); MEAN CORPUSCULAR HGB CONC 34.6 g/dl (31.0-37.0); MEAN PLATELET VOLUME 9.4 fl (7.0-11.0); MONO # 0.5 (0.1-0.6); MONO % 4.6 % (1.0-6.0); RBC 4.1 10^6/uL (3.5-6.1); RED CELL DISTRIBUTION WIDTH 11.7 % (11.5-14.5)
[2017-09-07 15:42] LABS: ALB/GLOB RATIO 1.5 (1.1-1.8); ALBUMIN 4.1 g/dL (3.0-4.8); ALT/SGPT 25 U/L (7-56); AST/SGOT 34 U/L (17-59); BILIRUBIN,DIRECT 0.1 mg/dL (0.0-0.4); BLOOD UREA NITROGEN 11 mg/dL (7-21); CALCIUM 8.9 mg/dL (8.4-10.5); GFR AFRICAN-AMERICAN > 60; GFR NON-AFRICAN AMERICAN > 60; LIPASE 75 U/L (23-300)
[2017-09-07 15:43] LABS: INR 0.97 (0.93-1.08)
[2017-09-07 15:51] LABS: URINE BILIRUBIN NEGATIVE (NEGATIVE); URINE BLOOD MODERATE (NEGATIVE); URINE GLUCOSE (UA) 100 mg/dL (NEGATIVE); URINE LEUKOCYTE ESTERASE NEGATIVE Leu/uL (NEGATIVE); URINE PROTEIN 30 mg/dL (<30 mg/dL); URINE UROBILINOGEN 0.2 E.U./dL (<1 E.U./dL)
[2017-09-07 15:55] LABS: URINE APPEARANCE SL CLOUDY (CLEAR); URINE COLOR YELLOW (YELLOW)
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
[2017-09-07 16:15] LABS: URINE BACTERIA MOD (NEG)
[2017-09-07 16:16] LABS: URINE COARSE GRANULAR CAST SMALL /hpf (0-2)
[2017-09-07] MEDS ORDERED: Iohexol 350 MG/100 ML VIAL ONE (16:42)
[2017-09-07 16:50] LABS: BARBITURATES, UR NEGATIVE (NEGATIVE); BENZODIAZEPINES, UR NEGATIVE (NEGATIVE); OPIATES, UR NEGATIVE (NEGATIVE); PHENCYCLIDINE, UR POSITIVE (NEGATIVE)
--- NOTE | 2017-09-07 17:08 | CT ---
PROCEDURE: CT HEAD WITHOUT CONTRAST. HISTORY: UNRESPONSIVE COMPARISON: Comparison made with CT scan brain dated 01/11/2015 TECHNIQUE: Axial computed tomography images were obtained through the head/brain without intravenous contrast. Radiation dose: Total exam DLP = 1096.11 mGy-cm. This CT exam was performed using one or more of the following dose reduction techniques: Automated exposure control, adjustment of the mA and/or kV according to patient size, and/or use of iterative reconstruction technique. FINDINGS: HEMORRHAGE: No intracranial hemorrhage. BRAIN: No mass effect or edema. No atrophy or chronic microvascular ischemic changes. VENTRICLES: Unremarkable. No hydrocephalus. CALVARIUM: No acute calvarial fractures. Bilateral facial soft tissue swelling extending into the periorbital regions as well as frontal scalp bilaterally. . In addition, there is left temporal parietal left and mid posterior parietal scalp contusion old changes with subcutaneous emphysema consistent with overlying laceration. PARANASAL SINUSES: Mild mucosal thickening seen in the ethmoid air complex left greater than right. There is also mucosal thickening left chamber sphenoid sinus and minor mucosal thickening right and less so left maxillary antrum. MASTOID AIR CELLS: Unremarkable as visualized. No inflammatory changes. OTHER FINDINGS: None. IMPRESSION: No acute intracranial hemorrhage. There is bilateral facial soft tissue swelling extending superiorly into the periorbital soft tissues and frontal scalp bilaterally. Left temporoparietal scalp contusions with subcutaneous emphysema consistent with overlying laceration.
[2017-09-07] MEDS ORDERED: Lidocaine 1%/Epinephrine 1:100000 30 ml vial IJ ONE (17:36)
[2017-09-07] MEDS ORDERED: Lidocaine 1% Inj (20ml) ONE (21:45)
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
[2017-09-07] MEDS ORDERED: Oxycodone/Acetaminophen 5/325 mg Tab PO STA (22:50)
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
[2017-09-08 01:53] VITALS: BMI 31.0
[2017-09-08 07:17] LABS: ALB/GLOB RATIO 1.3 (1.1-1.8); ALBUMIN 3.7 g/dL (3.0-4.8); ALT/SGPT 50 U/L (7-56); AST/SGOT 146 U/L (17-59); BLOOD UREA NITROGEN 10 mg/dL (7-21); CALCIUM 7.8 mg/dL (8.4-10.5); GFR AFRICAN-AMERICAN > 60; GFR NON-AFRICAN AMERICAN > 60
[2017-09-08 07:26] LABS: BASO # 0.02 K/mm3 (0.0-2.0); BASO % 0.3 % (0.0-3.0); GRAN # 4.5 (1.4-6.5); HEMOGLOBIN 11.3 g/dL (14.0-18.0); LYMPH % 16.2 % (22.0-35.0); MEAN CORPUSCULAR HEMOGLOBIN 31.3 pg (25.0-35.0); MEAN PLATELET VOLUME 9.5 fl (7.0-11.0); MONO # 0.5 (0.1-0.6); MONO % 8.5 % (1.0-6.0); RBC 3.61 10^6/uL (3.5-6.1); RED CELL DISTRIBUTION WIDTH 11.9 % (11.5-14.5)
[2017-09-08] MEDS: Oxycodone/Acetaminophen 5/325 mg Tab PO PRN ×3 (08:21→21:46)
[2017-09-08] MEDS: cefTRIAXone 1 gm 1 GM/100 ML BAG IVPB SCH (09:11)
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
--- NOTE | 2017-09-08 09:20 | CARD ---
APPROVED REPORT EKG Measurement Heart [id number] <Conclusion> Normal sinus rhythm Normal ECG
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
--- NOTE | 2017-09-08 19:52 | CP.PCM.PN ---
Subjective - Date & Time of Evaluation Date of Evaluation: 09/08/17 Time of Evaluation: 19:51 - Subjective Subjective: MR of T spine normal -no offical reading yet MR of L spine smal HNP L4/5 - no official reading yet would consider outpt PT and conservativ tx no intervention at present Objective - Vital Signs/Intake and Output Vital Signs (last 24 hours): Temp Pulse Resp BP Pulse Ox 98 F 53 L 20 126/75 96 09/08/17 17:43 09/08/17 17:43 09/08/17 17:43 09/08/17 17:43 09/08/17 05:41 Intake and Output: 09/08/17 09/09/17 18:59 06:59 Intake Total 360 Output Total 1200 Balance -840 - Medications Medications: Current Medications Ceftriaxone Sodium (Rocephin 1 Gram Ivpb) 1 gm in 100 mls @ 100 mls/hr IVPB DAILY [facility] PRN Reason: Protocol Last Admin: 09/08/17 09:11 Dose: 100 mls/hr Ketorolac Tromethamine (Toradol) 15 mg IVP Q6 PRN PRN Reason: Pain, moderate (4-7) Last Admin: 09/08/17 05:22 Dose: 15 mg Lorazepam (Ativan) 1 mg IVP Q4H PRN; Protocol PRN Reason: Symptoms of alcohol withdrawl Oxycodone/Acetaminophen (Percocet 5/325 Mg Tab) 1 tab PO Q4H PRN PRN Reason: Pain, severe (8-10) Stop: 09/10/17 23:56 Last Admin: 09/08/17 15:21 Dose: 1 tab Pantoprazole Sodium (Protonix Ec Tab) 40 mg PO 0600 [facility] - Labs Labs: 09/08/17 06:44 09/08/17 06:44 PT 11.0 SECONDS (9.4-12.5) 09/07/17 15:15 INR 0.97 (0.93-1.08) 09/07/17 15:15
--- NOTE | 2017-09-08 19:55 | US ---
HISTORY: Leg pain and swelling. Evaluate for DVT PHYSICIAN(S): Fabiano Davila MD. TECHNIQUE: Duplex sonography and color-flow Doppler with graded compression were used to evaluate the deep venous systems of both lower extremities. FINDINGS: The visualized deep venous systems of both lower extremities are sonographically normal and compressible. Normal wave forms and augmentation are seen. There is no sonographic evidence for deep venous thrombosis in the visualized segments of both lower extremities. IMPRESSION: No sonographic evidence for deep venous thrombosis in the visualized segments of both lower extremities.
[2017-09-09 06:28] LABS: BASO # 0.06 K/mm3 (0.0-2.0); EOS # 0.1 (0.0-0.7); EOS % 1.6 % (1.5-5.0); GRAN # 4.68 (1.4-6.5); GRAN % 80.8 % (50.0-68.0); HEMOGLOBIN 10.6 g/dL (14.0-18.0); LYMPH # 0.7 (1.2-3.4); LYMPH % 11.2 % (22.0-35.0); MEAN CELL VOLUME 91.7 fl (80.0-105.0); MEAN CORPUSCULAR HEMOGLOBIN 31.4 pg (25.0-35.0); MEAN CORPUSCULAR HGB CONC 34.2 g/dl (31.0-37.0); MEAN PLATELET VOLUME 9.5 fl (7.0-11.0); MONO # 0.3 (0.1-0.6); MONO % 5.4 % (1.0-6.0); RBC 3.38 10^6/uL (3.5-6.1); RED CELL DISTRIBUTION WIDTH 11.7 % (11.5-14.5); WHITE BLOOD COUNT 5.8 10^3/ul (4.5-11.0)
[2017-09-09] MEDS: Pantoprazole 40 mg EC Tab PO SCH (06:39)
[2017-09-09] MEDS: Oxycodone/Acetaminophen 5/325 mg Tab PO PRN ×2 (06:39→11:06)
[2017-09-09 06:40] LABS: ALB/GLOB RATIO 1.2 (1.1-1.8); ALBUMIN 3.3 g/dL (3.0-4.8); ALT/SGPT 60 U/L (7-56); AST/SGOT 174 U/L (17-59); BLOOD UREA NITROGEN 8 mg/dL (7-21); CALCIUM 8.4 mg/dL (8.4-10.5); GFR AFRICAN-AMERICAN > 60; GFR NON-AFRICAN AMERICAN > 60
[2017-09-09] MEDS: cefTRIAXone 1 gm 1 GM/100 ML BAG IVPB SCH (10:19)
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
--- NOTE | 2017-09-09 12:07 | CP.PCM.DIS ---
Provider - Provider Date of Admission: 09/07/17 23:22 Attending physician: Pa Thomason MD Primary care physician: NO FAMILY PROVIDER Time Spent in preparation of Discharge (in minutes): 55 Hospital Course - Lab Results Lab Results: Most Recent Lab Values WBC 5.8 10^3/ul (4.5-11.0) 09/09/17 06:10 RBC 3.38 10^6/uL (3.5-6.1) L 09/09/17 06:10 Hgb 10.6 g/dL (14.0-18.0) L 09/09/17 06:10 Hct 31.0 % (42.0-52.0) L 09/09/17 06:10 MCV 91.7 fl (80.0-105.0) 09/09/17 06:10 MCH 31.4 pg (25.0-35.0) 09/09/17 06:10 MCHC 34.2 g/dl (31.0-37.0) 09/09/17 06:10 RDW 11.7 % (11.5-14.5) 09/09/17 06:10 Plt Count 189 10^3/uL (120.0-450.0) 09/09/17 06:10 MPV 9.5 fl (7.0-11.0) 09/09/17 06:10 Gran % 80.8 % (50.0-68.0) H 09/09/17 06:10 Lymph % (Auto) 11.2 % (22.0-35.0) L 09/09/17 06:10 [place] % (Auto) 5.4 % (1.0-6.0) 09/09/17 06:10 Eos % (Auto) 1.6 % (1.5-5.0) 09/09/17 06:10 Baso % (Auto) 1.0 % (0.0-3.0) 09/09/17 06:10 Gran # 4.68 (1.4-6.5) 09/09/17 06:10 Lymph # (Auto) 0.7 (1.2-3.4) L 09/09/17 06:10 [place] # (Auto) 0.3 (0.1-0.6) 09/09/17 06:10 Eos # (Auto) 0.1 (0.0-0.7) 09/09/17 06:10 Baso # (Auto) 0.06 K/mm3 (0.0-2.0) 09/09/17 06:10 PT 11.0 SECONDS (9.4-12.5) 09/07/17 15:15 INR 0.97 (0.93-1.08) 09/07/17 15:15 Sodium 137 mmol/L (132-148) 09/09/17 06:10 Potassium 3.9 mmol/L (3.6-5.0) 09/09/17 06:10 Chloride 99 mmol/L (98-107) 09/09/17 06:10 Carbon Dioxide 31 mmol/L (21-33) 09/09/17 06:10 Anion Gap 11 (10-20) 09/09/17 06:10 BUN 8 mg/dL (7-21) 09/09/17 06:10 Creatinine 0.7 mg/dl (0.8-1.5) L 09/09/17 06:10 Est GFR ( Amer) > 60 09/09/17 06:10 Est GFR (Non-Af Amer) > 60 09/09/17 06:10 Random Glucose 106 mg/dL (70-110) 09/09/17 06:10 Calcium 8.4 mg/dL (8.4-10.5) 09/09/17 06:10 Phosphorus 2.6 mg/dL (2.5-4.5) 09/07/17 15:15 Magnesium 1.9 mg/dL (1.7-2.2) 09/07/17 15:15 Total Bilirubin 1.2 mg/dL (0.2-1.3) 09/09/17 06:10 Direct Bilirubin 0.1 mg/dL (0.0-0.4) 09/07/17 15:15 AST 174 U/L (17-59) H 09/09/17 06:10 ALT 60 U/L (7-56) H 09/09/17 06:10 Alkaline Phosphatase 64 U/L (38-126) 09/09/17 06:10 Total Protein 6.1 g/dL (5.8-8.3) 09/09/17 06:10 Albumin 3.3 g/dL (3.0-4.8) 09/09/17 06:10 Globulin 2.7 gm/dL 09/09/17 06:10 Albumin/Globulin Ratio 1.2 (1.1-1.8) 09/09/17 06:10 Lipase 75 U/L (23-300) 09/07/17 15:15 Urine Color Yellow (YELLOW) 09/07/17 15:40 Urine Appearance Sl cloudy (CLEAR) 09/07/17 15:40 Urine pH 6.0 (4.7-8.0) 09/07/17 15:40 Ur Specific [place] 1.020 (1.005-1.035) 09/07/17 15:40 Urine Protein 30 mg/dL (<30 mg/dL) H 09/07/17 15:40 Urine Glucose (UA) 100 mg/dL (NEGATIVE) H 09/07/17 15:40 Urine Ketones Negative mg/dL (NEGATIVE) 09/07/17 15:40 Urine Blood Moderate (NEGATIVE) H 09/07/17 15:40 Urine Nitrate Negative (NEGATIVE) 09/07/17 15:40 Urine Bilirubin Negative (NEGATIVE) 09/07/17 15:40 Urine Urobilinogen 0.2 E.U./dL (<1 E.U./dL) 09/07/17 15:40 Ur Leukocyte Esterase Negative Bhavin/uL (NEGATIVE) 09/07/17 15:40 Urine RBC 2 - 5 /hpf (0-2) 09/07/17 15:40 Urine WBC 2 - 5 /hpf (0-6) 09/07/17 15:40 Ur Epithelial Cells 4 - 5 /hpf (0-5) 09/07/17 15:40 Urine Bacteria Mod (NEG) 09/07/17 15:40 Coarse Granular Casts Small /hpf (0-2) H 09/07/17 15:40 Urine Opiates Screen Negative (NEGATIVE) 09/07/17 15:40 Urine Methadone Screen Negative (NEGATIVE) 09/07/17 15:40 Ur Barbiturates Screen Negative (NEGATIVE) 09/07/17 15:40 Ur Phencyclidine Scrn Positive (NEGATIVE) H 09/07/17 15:40 Ur Amphetamines Screen Negative (NEGATIVE) 09/07/17 15:40 U Benzodiazepines Scrn Negative (NEGATIVE) 09/07/17 15:40 U Oth Cocaine Metabols Negative (NEGATIVE) 09/07/17 15:40 U Cannabinoids Screen Positive (NEGATIVE) H 09/07/17 15:40 Alcohol, Quantitative 260 mg/dL (0-10) H 09/07/17 15:15 Blood Type O POSITIVE 09/07/17 15:52 Blood Type Confirm O POSITIVE 09/07/17 15:15 Antibody Screen Negative 09/07/17 15:52 BBK History Checked No verified bt 09/07/17 15:52 Discharge Exam - Head Exam Head Exam: NORMOCEPHALIC Discharge Plan - Follow Up Plan Condition: FAIR Disposition: HOME/ ROUTINE Referrals: FAMILY PROVIDER,NO [Primary Care Provider] -
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
[2017-09-10] MEDS: Pantoprazole 40 mg EC Tab PO SCH ×2 (06:06→07:59)
[2017-09-10 06:55] LABS: BASO # 0.03 K/mm3 (0.0-2.0); BASO % 0.7 % (0.0-3.0); EOS # 0.1 (0.0-0.7); EOS % 2.9 % (1.5-5.0); GRAN # 3.32 (1.4-6.5); GRAN % 74.6 % (50.0-68.0); HEMOGLOBIN 10.7 g/dL (14.0-18.0); LYMPH # 0.7 (1.2-3.4); LYMPH % 15.5 % (22.0-35.0); MEAN CELL VOLUME 91.1 fl (80.0-105.0); MEAN CORPUSCULAR HEMOGLOBIN 30.7 pg (25.0-35.0); MEAN CORPUSCULAR HGB CONC 33.8 g/dl (31.0-37.0); MEAN PLATELET VOLUME 9.6 fl (7.0-11.0); MONO # 0.3 (0.1-0.6); MONO % 6.3 % (1.0-6.0); RBC 3.48 10^6/uL (3.5-6.1); RED CELL DISTRIBUTION WIDTH 11.4 % (11.5-14.5); WHITE BLOOD COUNT 4.5 10^3/ul (4.5-11.0)
[2017-09-10 07:05] LABS: ALB/GLOB RATIO 1.2 (1.1-1.8); ALBUMIN 3.3 g/dL (3.0-4.8); ALT/SGPT 62 U/L (7-56); AST/SGOT 152 U/L (17-59); BLOOD UREA NITROGEN 8 mg/dL (7-21); CALCIUM 8.6 mg/dL (8.4-10.5); GFR AFRICAN-AMERICAN > 60; GFR NON-AFRICAN AMERICAN > 60
[2017-09-10] MEDS: cefTRIAXone 1 gm 1 GM/100 ML BAG IVPB SCH (09:41)
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
--- NOTE | 2017-09-10 18:30 | US ---
PROCEDURE: Left lower extremity venous US HISTORY: Leg pain and swelling. Evaluate for DVT. PHYSICIAN(S): Fabiano Davila MD. TECHNIQUE: Duplex sonography and color-flow Doppler with graded compression were used to evaluate the deep venous system of the left lower extremity. FINDINGS: The visualized deep venous system of the left lower extremity is sonographically normal and compressible. Normal wave forms and augmentation are seen. There is no sonographic evidence for deep venous thrombosis in the visualized segments of the left lower extremity. IMPRESSION: 1. No sonographic evidence for deep venous thrombosis in the visualized segments of the left lower extremity.
[2017-09-11] MEDS: Pantoprazole 40 mg EC Tab PO SCH (05:16)
[2017-09-11 06:35] LABS: BASO # 0.04 K/mm3 (0.0-2.0); EOS # 0.2 (0.0-0.7); EOS % 4.1 % (1.5-5.0); GRAN # 2.43 (1.4-6.5); GRAN % 59.3 % (50.0-68.0); HEMOGLOBIN 10.5 g/dL (14.0-18.0); LYMPH % 24.6 % (22.0-35.0); MEAN CELL VOLUME 90.7 fl (80.0-105.0); MEAN CORPUSCULAR HEMOGLOBIN 31.3 pg (25.0-35.0); MEAN CORPUSCULAR HGB CONC 34.5 g/dl (31.0-37.0); MEAN PLATELET VOLUME 9.5 fl (7.0-11.0); MONO # 0.5 (0.1-0.6); RBC 3.35 10^6/uL (3.5-6.1); RED CELL DISTRIBUTION WIDTH 11.5 % (11.5-14.5); WHITE BLOOD COUNT 4.1 10^3/ul (4.5-11.0)
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
[2017-09-11] MEDS: cefTRIAXone 1 gm 1 GM/100 ML BAG IVPB SCH (09:33)
[2017-09-12] MEDS: Pantoprazole 40 mg EC Tab PO SCH (05:17)
[2017-09-12 07:56] LABS: HEMOGLOBIN 10.9 g/dL (14.0-18.0); MEAN CORPUSCULAR HEMOGLOBIN 31.6 pg (25.0-35.0); MEAN CORPUSCULAR HGB CONC 34.7 g/dl (31.0-37.0); MEAN PLATELET VOLUME 8.9 fl (7.0-11.0); RBC 3.45 10^6/uL (3.5-6.1); RED CELL DISTRIBUTION WIDTH 11.5 % (11.5-14.5); WHITE BLOOD COUNT 3.8 10^3/ul (4.5-11.0)
[2017-09-12 08:06] LABS: ALB/GLOB RATIO 1.2 (1.1-1.8); ALBUMIN 3.3 g/dL (3.0-4.8); ALT/SGPT 59 U/L (7-56); AST/SGOT 97 U/L (17-59); BLOOD UREA NITROGEN 14 mg/dL (7-21); CALCIUM 8.8 mg/dL (8.4-10.5); GFR AFRICAN-AMERICAN > 60; GFR NON-AFRICAN AMERICAN > 60
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
[2017-09-13] MEDS: Pantoprazole 40 mg EC Tab PO SCH (05:40)
[2017-09-13 06:01] VITALS: O2SAT 99
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
[2017-09-13 13:26] VITALS: RESP 20
[2017-09-13 18:35] VITALS: BP 129/76; PULSE 85; TEMP 98.1
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
== END 2017-09-13 19:43 | DRG 243 ==
LOC: ED 15:10 → ERH 23:22 → 2RNO 09-08 01:01 → OBSVTOIN 09-10 15:18
PROVIDERS: ADMIT Internal Medicine; ATTEND Internal Medicine
PROC: 0HQ0XZZ Repair Scalp Skin, External Approach (ICD-10-PCS; principal; 2017-09-07)
PROC: 0HQAXZZ Repair Inguinal Skin, External Approach (ICD-10-PCS; 2017-09-07)
PROC: 0HQ8XZZ Repair Buttock Skin, External Approach (ICD-10-PCS; 2017-09-07)
DX: S32.049A Unspecified fracture of fourth lumbar vertebra, initial encounter for closed fracture (principal); F20.0 Paranoid schizophrenia; F19.950 Other psychoactive substance use, unspecified with psychoactive substance-induced psychotic disorder with delusions; S32.059A Unspecified fracture of fifth lumbar vertebra, initial encounter for closed fracture; S32.039A Unspecified fracture of third lumbar vertebra, initial encounter for closed fracture; F43.10 Post-traumatic stress disorder, unspecified; F32.9 Major depressive disorder, single episode, unspecified; S01.01XA Laceration without foreign body of scalp, initial encounter; S31.113A Laceration without foreign body of abdominal wall, right lower quadrant without penetration into peritoneal cavity, initial encounter; S31.010A Laceration without foreign body of lower back and pelvis without penetration into retroperitoneum, initial encounter; F19.951 Other psychoactive substance use, unspecified with psychoactive substance-induced psychotic disorder with hallucinations; F17.210 Nicotine dependence, cigarettes, uncomplicated; M25.78 Osteophyte, vertebrae; F41.9 Anxiety disorder, unspecified; Y08.89XA Assault by other specified means, initial encounter; Y92.488 Other paved roadways as the place of occurrence of the external cause; Z76.5 Malingerer [conscious simulation]; Z78.1 Physical restraint status